=== PATIENT | female | born 2000 | race Caucasian/White ===

== ENCOUNTER 2023-06-19 20:49 | Emergency (ER) | payer OTHER ==
[2023-06-19 20:58] VITALS: BP 98/65; PULSE 67; RESP 18; TEMP 98.1; BMI 19.5
[2023-06-19 21:23] LABS: PH,URINE 6.5 (5.0-8.0); URINE APPEARANCE CLEAR; URINE BILIRUBIN NEGATIVE (NEGATIVE); URINE COLOR YELLOW; URINE GLUCOSE (UA) NEGATIVE (NEGATIVE); URINE KETONE NEGATIVE (NEGATIVE); URINE LEUK ESTERASE NEGATIVE (NEGATIVE); URINE NITRITE NEGATIVE (NEGATIVE); URINE PROTEIN NEGATIVE (NEGATIVE); URINE UROBILINOGEN 0.2 mg/dL (0.2-1.0)
== END 2023-06-19 23:33 | disposition home or self-care (01) ==
LOC: JER 20:49
DX: N76.0 Acute vaginitis (principal); R10.30 Lower abdominal pain, unspecified; R30.0 Dysuria; R11.0 Nausea; R68.83 Chills (without fever)
CPT/HCPCS: 36415; 76830-TC; 81003; 84703; 87077; 87086; 87491; 87591; 87661; 99284-25